=== PATIENT | female | born 1965 | race Caucasian/White ===

== ENCOUNTER → 2018-02-02 09:11 | Day surgery (SDC) | payer OTHER ==
[~2018-02-02 09:11] MED LIST: BuPROPion XL* 300 MG TAB.XL PO ONE; Buffered Lidocaine 0.9% SYRIN* 5 ML/SYR SYRINGE INTRADERM ONE; Dexamethasone IV* 4 MG/ML 1 ML (4 MG) IV SLOW PU ONE; Dexamethasone IV* 4 MG/ML 1 ML (4 MG) ONE; DiMENhydriNATE IV* 50 MG/ML VIAL IV PUSH PRN; FLUoxetine CAP* 20 MG PO ONE; Famotidine IV* 10 MG/ML 2 ML (20 mg) IV ONE; Famotidine IV* 10 MG/ML 2 ML (20 mg) ONE; Gabapentin CAP(*) 300 MG ONE; Gabapentin CAP(*) 300 MG PO ONE; Ketorolac INJ* 30 MG/ML 1 ML VIAL ONE; Midazolam* 1 MG/ML 2 ML VIAL (2 MG) ONE; Naloxone* 0.4 MG/ML 1 ML VIAL IV PRN; Ondansetron INJ* 2 MG/ML VIAL ONE; Propofol* 10 MG/ML 20 ML BTL IV PUSH ONE; clonazePAM TAB(*) 1 MG PO PRN; fentaNYL* 50 MCG/ML 2 ML VIAL (100 MCG VIAL) IV PRN; fentaNYL* 50 MCG/ML 2 ML VIAL (100 MCG VIAL) ONE
[2018-02-02 12:38] VITALS: BP 152/84
--- NOTE | 2018-02-02 23:52 | OP ---
AMENDED REPORT NOW INCLUDES DATE OF OPERATION - ESIGNED BEFORE ADJUSTMENT * DATE OF OPERATION: 02/02/18 - [facility] DATE OF : 61 SURGEON: Andre Carvajal MD. INVESTIGATION DIVISION CAPTAIN: None. ANESTHESIA: General endotracheal tube. PRE-OP DIAGNOSES: Dysfunctional uterine bleeding, endometrial polyps. POST-OP DIAGNOSES: Dysfunctional uterine bleeding, endometrial polyps. OPERATIVE PROCEDURE: D and C, hysteroscopy and MyoSure resection of polyps or fibroids. ESTIMATED BLOOD LOSS: Minimal. SPECIMEN: Includes endometrium and polyps, and potential fibroids. FINDINGS: On exam under anesthesia, the uterus has been positioned, sounded to 8 cm. Cervix and vulva appeared normal. The uterine cavity contained 3 polyps, one which was pretty large approximately 2 to 3 cm. The other 2 smaller more like 1 cm polyps. DESCRIPTION OF PROCEDURE: The patient identified, procedure identified as a D and C, hysteroscopy, resection of polyps. The patient was taken to the operating room, prepped and draped in the usual fashion in dorsal lithotomy position under general anesthesia. Two single-tooth tenaculum were placed on the anterior lip of the cervix. Cervix was sounded to 8 cm. The cervix was easily dilated up to a #28 Earl dilator. The hysteroscope was inserted. The above findings were noted. We switched to the MyoSure device and MyoSure was used to resect the polyps down to the level flush with the endometrium. The MyoSure device was removed and sharp curette was inserted and sharp curettage performed with a scant tissue obtained. Good hemostasis was verified. All instruments were removed from the vagina and all sponge and instrument counts correct. The patient returned to recovery room in stable condition. Deficit was 160 cc of saline. [id number]/[facility] #: [id number] [facility]
== END | disposition home or self-care (01) ==
LOC: OR 09:11
PROVIDERS: ATTEND Obstetrics & Gynecology
DX: N93.8 Other specified abnormal uterine and vaginal bleeding (principal); N84.0 Polyp of corpus uteri; I10 Essential (primary) hypertension; F41.8 Other specified anxiety disorders
CPT/HCPCS: 88305; A9270-GY; J1100; J1885; J2250; J2405; J2704; J3010

== ENCOUNTER 2018-02-16 06:17 | Day surgery (SDC) | payer OTHER ==
[~2018-02-16 06:17] MED LIST changes: -BuPROPion XL* 300 MG TAB.XL PO ONE; -Dexamethasone IV* 4 MG/ML 1 ML (4 MG) IV SLOW PU ONE; -Dexamethasone IV* 4 MG/ML 1 ML (4 MG) ONE; -DiMENhydriNATE IV* 50 MG/ML VIAL IV PUSH PRN; -FLUoxetine CAP* 20 MG PO ONE; -Famotidine IV* 10 MG/ML 2 ML (20 mg) IV ONE; -Famotidine IV* 10 MG/ML 2 ML (20 mg) ONE; -Gabapentin CAP(*) 300 MG ONE; -Gabapentin CAP(*) 300 MG PO ONE; -Ketorolac INJ* 30 MG/ML 1 ML VIAL ONE; -Midazolam* 1 MG/ML 2 ML VIAL (2 MG) ONE; -Naloxone* 0.4 MG/ML 1 ML VIAL IV PRN; -Ondansetron INJ* 2 MG/ML VIAL ONE; -Propofol* 10 MG/ML 20 ML BTL IV PUSH ONE; -clonazePAM TAB(*) 1 MG PO PRN; -fentaNYL* 50 MCG/ML 2 ML VIAL (100 MCG VIAL) IV PRN; -fentaNYL* 50 MCG/ML 2 ML VIAL (100 MCG VIAL) ONE
[2018-02-16] MEDS ORDERED: Bupivacaine 0.5%* 50 ML VIAL ONE (07:05)
[2018-02-16] MEDS ORDERED: fentaNYL* 50 MCG/ML 2 ML VIAL (100 MCG VIAL) ONE (07:18)
[2018-02-16] MEDS ORDERED: Midazolam* 1 MG/ML 2 ML VIAL (2 MG) ONE ×2 (07:19→07:31)
[2018-02-16] MEDS ORDERED: Naloxone* 0.4 MG/ML 1 ML VIAL IV PRN (07:21)
[2018-02-16] MEDS ORDERED: Propofol* 10 MG/ML 20 ML BTL IV PUSH ONE (07:41)
[2018-02-16] MEDS ORDERED: Lidocaine 2% PF * 5 ML VIAL ONE (07:41)
[2018-02-16 08:23] VITALS: BP 135/87
--- NOTE | 2018-02-16 14:33 | OP ---
DATE OF OPERATION: 02/16/18 - [facility] DATE OF : 61 SURGEON: Jairo Mcqueen MD ADHESIVE BANDAGE MACHINE OPERATOR: RORY Carrillo ANESTHESIOLOGIST: Dr. Spencer. ANESTHESIA: Local MAC. PRE-OP DIAGNOSES: 1. Right trigger thumb. 2. Right middle trigger finger. POST-OP DIAGNOSES: 1. Right trigger thumb. 2. Right middle trigger finger. OPERATIVE PROCEDURE: 1. Right trigger thumb release of A1 nuzhat. 2. Right middle trigger finger of A1 nuzhat. INDICATIONS: Anne has had trigger fingers recurring despite a full resolution with a prior injection. We talked about another injection versus surgical release. She wanted to proceed with surgery. ESTIMATED BLOOD LOSS: 1 mL. COMPLICATIONS: None. FINDINGS: See above and below. DESCRIPTION OF PROCEDURE: Anne was seen in the preoperative holding area. The correct side, site, and procedure were identified. We came back to the operating room where the arm was prepped and draped in the usual fashion. A time-out was performed. The arm was exsanguinated with the Esmarch and the tourniquet was inflated to 250 mmHg. I made a transverse incision in the right thumb MP joint flexion crease. The dissection was carried down bluntly with tenotomy scissors and Ragnell retractors were placed to protect the digital nerves. I then incised the A1 nuzhat longitudinally with the 15 blade and released this completely distally and proximally with the tenotomy scissors. When the release was complete, the wound was irrigated out and closed with 4-0 nylon suture. I then made a 1 cm incision in the palmar flexion crease over the right middle finger A1 nuzhat. In a similar fashion, blunt dissection was used to release the soft tissues over the A1 nuzhat. The digital nerves were protected with Ragnell retractors. The A1 nuzhat was incised off the radial aspect of midline. The release was completed distally and proximally with the tenotomy scissors. Once the release was complete, the wound was irrigated out and the skin was closed with 4-0 nylon suture. We had infiltrated 0.5% Marcaine prior to making skin incisions. The wounds were dressed. The tourniquet was deflated and she was taken to the recovery room in stable condition. [id number]/[facility] #: [id number] [facility]
== END 2018-02-16 08:36 | disposition home or self-care (01) ==
LOC: OREAST 06:17
PROVIDERS: ATTEND Orthopaedic Surgery Hand Surgery
DX: M65.311 Trigger thumb, right thumb (principal); M65.331 Trigger finger, right middle finger; I10 Essential (primary) hypertension; E78.5 Hyperlipidemia, unspecified; D64.9 Anemia, unspecified
CPT/HCPCS: J2250; J2704; J3010